=== PATIENT | female | born 2000 | race Native Hawaiian/Other Pacific Islander ===

== ENCOUNTER 2021-04-07 15:48 | Outpatient (CLI) | payer OTHER ==
[2021-04-07] MEDS ORDERED: LACTATED RINGERS 1,000 ML IV ONE (16:39)
[2021-04-07 17:40] LABS: Hemoglobin 12.2 gm/dl (10.1-14.3); Mean Corpuscular HGB Conc 34 % (30-34); Mean Corpuscular Volume 92 fl (79-97); Platelet Count 247 K/mm3 (140-440); Red Blood Count 3.92 M/mm3 (3.65-5.03)
[2021-04-07 17:57] LABS: Alanine Aminotransferase 9 units/L (7-56); Uric Acid 5.7 mg/dL (3.5-7.6)
[2021-04-07 18:31] LABS: Bilirubin,Urine NEG (Negative); Blood,Urine NEG (Negative); Color,Urine Yellow (Yellow); Mucus,Urine FEW /HPF; Protein,Urine <15 mg/dL mg/dL (Negative); Urobilinogen,Urine < 2.0 mg/dL (<2.0)
[2021-04-07 19:25] VITALS: BP 113/77
--- NOTE | 2021-04-07 20:59 | Ultrasound Report ---
ULTRASOUND OBSTETRIC LIMITED ULTRASOUND BIOPHYSICAL PROFILE INDICATION / CLINICAL INFORMATION: BPP. Clinical Gestational Age (GA): 36.5 weeks.days COMPARISON: None available. FINDINGS: BREATHING MOVEMENT = 2 GROSS BODY MOVEMENT = 2 TONE = 2 QUALITATIVE AMNIOTIC FLUID VOLUME = 2 TOTAL BIOPHYSICAL SCORE = 8/8 HEART RATE (beats per minute): 138 AMNIOTIC FLUID INDEX (cm) = 8.6 (normal = 7-24 cm) PRESENTATION: Cephalic. ADDITIONAL FINDINGS: The placenta is located in the fundus. There is no evidence of previa or abrupti on. IMPRESSION: 1. Biophysical Score = 8/8 2. Normal BUD. Signer Name: Wallace Martins MD Signed: 04/07/2021 8:55 PM Workstation Name: [id number]
== END 2021-04-07 20:50 | disposition home or self-care (01) ==
LOC: TRG 15:48 → APU 15:49 → TRG 20:50
PROVIDERS: ATTEND Obstetrics & Gynecology
DX: O13.3 Gestational [pregnancy-induced] hypertension without significant proteinuria, third trimester (principal); O62.9 Abnormality of forces of labor, unspecified; Z3A.36 36 weeks gestation of pregnancy
CPT/HCPCS: 36415; 59025; 76815; 76819; 81001; 82565; 83615; 84112; 84450; 84460; 84550; 85027; 96360; J7120

== ENCOUNTER 2021-04-19 13:29 | Inpatient (IN) | payer OTHER ==
[2021-04-19] MEDS ORDERED: LACTATED RINGERS 1,000 ML ONE (19:19)
[2021-04-19] MEDS ORDERED: METHYLERGONOVINE MALEATE 0.2 MG/ML VIAL IM PRN (19:23)
[2021-04-19] MEDS ORDERED: PROMETHAZINE 25 MG TAB PO PRN (19:23)
[2021-04-19] MEDS ORDERED: ACETAMINOPHEN 325 MG TAB PO PRN (19:23)
[2021-04-19] MEDS ORDERED: ePHEDrine SULFATE 50 MG/1 ML INJ IV PRN ×2 (19:23→19:30)
[2021-04-19] MEDS ORDERED: NalbUPHINE 10 MG/1 ML INJ IV PRN (19:23)
[2021-04-19] MEDS ORDERED: MINERAL OIL 30 ML ORAL LIQD PO PRN (19:23)
[2021-04-19] MEDS ORDERED: miSOPROStol 200 MCG TAB PR PRN (19:23)
[2021-04-19] MEDS ORDERED: OXYTOCIN 10 UNIT/1 ML INJ IM PRN (19:23)
[2021-04-19] MEDS ORDERED: CARBOPROST TROMETHAMINE 250 MCG/1 ML INJ IM PRN (19:23)
[2021-04-19] MEDS ORDERED: fentaNYL 100 MCG/2 ML INJ IV PRN (19:23)
[2021-04-19] MEDS ORDERED: TERBUTALINE 1 MG/1 ML INJ SUB-Q PRN (19:23)
[2021-04-19] MEDS ORDERED: LOPERAMIDE 2 MG CAP PO PRN (19:23)
[2021-04-19] MEDS ORDERED: ONDANSETRON 4 MG/2 ML INJ IV PRN (19:23)
[2021-04-19] MEDS ORDERED: LACTATED RINGERS 1,000 ML IV SCH (19:30)
[2021-04-19] MEDS ORDERED: NALOXONE 2 MG/2 ML INJ IV PRN (19:30)
--- NOTE | 2021-04-19 19:30 | Anesthesia Consultation ---
Anesthesia Consult and Med Hx Date of service: 04/19/21 - Airway Anesthetic Teeth Evaluation: Poor ROM Head & Neck: Adequate Mental/Hyoid Distance: Adequate Mallampati Class: Class II Intubation Access Assessment: Probably Good - Pulmonary Exam CTA: Yes - Cardiac Exam Cardiac Exam: RRR - Pre-Operative Health Status ASA Pre-Surgery Classification: ASA2 Proposed Anesthetic Plan: Epidural - Pulmonary Hx Smoking: No Hx Asthma: No Hx Respiratory Symptoms: No SOB: No COPD: No Home Oxygen Therapy: No Hx Pneumonia: No Hx Sleep Apnea: No - Cardiovascular System Hx Hypertension: No Hx Coronary Artery Disease: No Hx Heart Attack/AMI: No Hx Angina: No Hx Percutaneous Transluminal Coronary Angioplasty (PTCA): No Hx Cardia Arrhythmia: No Hx Pacemaker: No Hx Internal Defibrillator: No Hx Valvular Heart Disease: No Hx Heart Murmur: No Hx Peripheral Vascular Disease: No - Central Nervous System Hx Neuromuscular Disorder: No Hx Seizures: No CVA: No Hx Back Pain: Yes Hx Psychiatric Problems: No - Gastrointestinal Hx Ulcer: No Hx Gastroesophageal Reflux Disease: Yes - Endocrine Hx Renal Disease: No Hx End Stage Renal Disease: No Hx Cirrhosis: No Hx Liver Disease: No Hx Insulin Dependent Diabetes: No Hx Non-Insulin Dependent Diabetes: No Hx Thyroid Disease: No Hx Hypothyroidism: No Hx Hyperthyroidism: No - Hematic Hx Anemia: No Hx Sickle Cell Disease: No - Other Systems Hx Alcohol Use: No Hx Substance Use: No Hx Cancer: No Hx Obesity: Yes
--- NOTE | 2021-04-19 19:34 | History and Physical Report ---
History of Present Illness Date of examination: 04/19/21 Date of admission: 04/19/21 Chief complaint: SROM and ctx History of present illness: at 38+ weeks by LMP c/w U/S. care at [facility]. Pt c/o LOF at 12:50pm today and feeling ctx earlier today. Pt admits to movement, denies vag bleed or headache. Denies fever or chills. pt desires pain med with epidural for painful contractions. labs with B positive, neg antibody screen, rubella non-immune, VDRL neg, HepBsAg neg, HIV neg and GBS neg. Past History Past Medical History: other (Rubella non-immune, SMA carrier) Past Surgical History: no surgical history Social history: no significant social history - Obstetrical History Expected Date of Delivery: 05/01/21 Actual Gestation: 38 Week(s) 2 Day(s) : 1 Number of Living Children: 0 Medications and Allergies Allergies Allergy/AdvReac Type Severity Reaction Status Date / Time No Known Allergies Allergy Verified 04/07/21 16:16 Home Medications Medication Instructions Recorded Confirmed Last Taken Type No Known Home Medications [No 04/19/21 04/19/21 Unknown History Reported Home Medications] Active Meds: Active Medications Acetaminophen (Acetaminophen 325 Mg Tab) 650 mg PO Q4H PRN PRN Reason: Pain, Mild (1-3) Carboprost Tromethamine (Carboprost Tromethamine 250 Mcg/1 Ml Inj) 250 mcg IM ONCE PRN PRN Reason: Uterine Bleeding Ephedrine Sulfate (Ephedrine Sulfate 50 Mg/1 Ml Inj) 10 mg IV Q2M PRN PRN Reason: Hypotension Fentanyl (Fentanyl 100 Mcg/2 Ml Inj) 100 mcg IV Q2H PRN PRN Reason: Pain,Severe (7-10) LABOR PAIN Oxytocin/Sodium Chloride (Pitocin/Ns 30 Unit/500ml) 30 units in 500 mls @ 2 mls/hr IV TITR ZULEYMA; Protocol Lactated Ringer's (Lactated Ringers) 1,000 mls @ 125 mls/hr IV DIRECT ZULEYMA Oxytocin/Sodium Chloride (Pitocin/Ns 30 Unit/500ml) 30 units in 500 mls @ 40 mls/hr IV TITR [facility]; Protocol Lidocaine (Lidocaine (2%) 20 Mg/1 Ml Vial 20 Ml Mdv) 20 ml INFILTRATI ONCE ONE Stop: 04/19/21 19:24 Loperamide HCl (Loperamide 2 Mg Cap) 2 mg PO ONCE PRN PRN Reason: give with Hemabate Methylergonovine Maleate (Methylergonovine Maleate 0.2 Mg/Ml Vial) 0.2 mg IM ONCE PRN PRN Reason: Uterine Bleeding Mineral Oil (Mineral Oil 30 Ml Oral Liqd) 30 ml PO QHS PRN PRN Reason: Constipation Misoprostol (Misoprostol 200 Mcg Tab) 800 mcg AR ONCE PRN PRN Reason: Uterine Bleeding Nalbuphine HCl (Nalbuphine 10 Mg/1 Ml Inj) 10 mg IV Q2H PRN PRN Reason: Pain, Moderate (4-6) Ondansetron HCl (Ondansetron 4 Mg/2 Ml Inj) 4 mg IV Q8H PRN PRN Reason: Nausea And Vomiting Oxytocin (Oxytocin 10 Unit/1 Ml Inj) 10 unit IM ONCE PRN PRN Reason: Uterine Bleeding Promethazine HCl (Promethazine 25 Mg Tab) 25 mg PO Q6H PRN PRN Reason: Nausea And Vomiting Terbutaline Sulfate (Terbutaline 1 Mg/1 Ml Inj) 0.25 mg SUB-Q ONCE PRN PRN Reason: Hyperstimulation/Hypertonicity Review of Systems All systems: negative (LOF and ctx) - Vital Signs Vital signs: Vital Signs Pulse Pulse Ox 87 98 04/19/21 14:10 04/19/21 14:10 Temp Pulse Resp BP Pulse Ox 98.7 F 108 H 18 131/75 96 04/19/21 17:50 04/19/21 19:25 04/19/21 14:18 04/19/21 18:12 04/19/21 19:25 - Physical Exam Breasts: Positive: deferred Cardiovascular: Regular rate Lungs: Positive: Normal air movement Abdomen: Positive: soft Genitourinary (Female): Positive: normal external genitalia Uterus: Positive: enlarged (non-tender, gravid) Extremities: Positive: normal - Obstetrical FHR: category 1 Uterine Contraction Monitor Mode: External Cervical Dilatation: 5 (also 5cm by triage nurse) Cervical Effacement Percentage: 90 station: -1 Uterine Contraction Pattern: Irregular Uterine Contraction Intensity: Moderate Results Abnormal lab results 04/19/21 Range/Units Unknown Membranes Rupture Positive A (Negative) All other labs normal. Assessment and Plan Term preg in latent labor, GBS neg; rubella non-immune 1. Admit to labor and delivery and offer rubella vaccine 2. Augment labor with pitocin if cervix unchanged in 2hrs; no change noted with my repeat exam but pt uncomfortable so will delay pit until IV med given awaiting epidural 3. May have IV pain med or epidural when desired 4. Plan of care discussed and all questions encouraged and answered and pt agrees; expect
[2021-04-19 19:52] LABS: Hematocrit 36.9 % (30.3-42.9); Hemoglobin 12.3 gm/dl (10.1-14.3); Mean Corpuscular HGB Conc 33 % (30-34); Mean Corpuscular Volume 92 fl (79-97); Platelet Count 209 K/mm3 (140-440); Red Blood Count 4.03 M/mm3 (3.65-5.03); Red Cell Distribution Width 14.3 % (13.2-15.2)
[2021-04-19] MEDS ORDERED: fentaNYL-BUPIV 2 MCG/ML-0.125% 200 MCG/100 ML BAG EPIDURAL SCH (20:00)
[2021-04-19] MEDS ORDERED: LIDOCAINE (2%) 20 MG/1 ML VIAL 20 ML MDV INFILTRATI ONE (20:30)
[2021-04-19] MEDS ORDERED: OXYTOCIN DRIP 30 UNITS/500 ML BAG IV SCH ×2 (21:00)
--- NOTE | 2021-04-19 23:21 | Procedure Note ---
OB Delivery Note - Delivery Date of Delivery: 04/19/21 Surgeon: TOMASZ TURPIN Estimated blood loss: 500cc - Vaginal Delivery position: OA Intrapartum events: other(please specify) Delivery monitor: external FHT Route of delivery: Delivery placenta: spontaneous Delivery cord: nuchal cord (nuchal cord x1 avulsed while attempting to manually reduce and patient pushed.) Episiotomy: none Delivery laceration: vaginal side wall, other ((B) periurethral lacerations, (L) labia minora fracture, (B) vaginal sidewall) Delivery repair: vicryl Anesthesia: local - A at 1 minute: 2 at 5 minutes: 8 Gender: Male
[2021-04-20] MEDS ORDERED: MAGNESIUM HYDROXIDE (MOM) ORAL LIQD UDC PO PRN (01:18)
[2021-04-20] MEDS ORDERED: WITCH HAZEL/ GLYCERIN PAD TP PRN (01:18)
[2021-04-20] MEDS ORDERED: PROMETHAZINE 25 MG TAB PO PRN (01:18)
[2021-04-20] MEDS ORDERED: ONDANSETRON 4 MG/2 ML INJ IV PRN (01:18)
[2021-04-20] MEDS ORDERED: HYDROcodone/ACETAMINOPHEN 5-325 MG TAB PO PRN (01:18)
[2021-04-20] MEDS ORDERED: diphenhydrAMINE 25 MG CAP PO PRN (01:18)
[2021-04-20] MEDS ORDERED: ACETAMINOPHEN 325 MG TAB PO PRN (01:18)
[2021-04-20] MEDS ORDERED: oxyCODONE /ACETAMINOPHEN 5-325MG TAB PO PRN (01:18)
[2021-04-20] MEDS ORDERED: LANOLIN/ZINC/DIMETHICONE (LANSINOH) 7 GM TP PRN (01:18)
[2021-04-20] MEDS: IBUPROFEN 600 MG TAB PO SCH ×4 (01:59→20:33)
[2021-04-20 02:39] LABS: Hematocrit 36.3 % (30.3-42.9); Hemoglobin 11.7 gm/dl (10.1-14.3); Mean Corpuscular HGB Conc 32 % (30-34); Mean Corpuscular Volume 93 fl (79-97); Platelet Count 182 K/mm3 (140-440); Red Blood Count 3.91 M/mm3 (3.65-5.03); Red Cell Distribution Width 14.2 % (13.2-15.2)
--- NOTE | 2021-04-20 14:29 | Progress Note ---
Assessment and Plan PPD#1 with bilateral mild bilateral labia edema and leucocytosis 1. Will repeat cbc in am and give augmentin now 2. routine care All questions encouraged and answered Subjective Date of service: 04/20/21 Principal diagnosis: PPD#1 with bilat mild labial swelling Interval history: Pt is voiding without difficulty. Denies pelvic pain. Pt wants to breast feed. Vag bleed less than a period. Objective - Constitutional Vitals: Vital Signs - 12hr 04/20/21 04/20/21 04/20/21 03:33 07:58 08:25 Temperature 98.6 F 97.7 F Pulse Rate 99 H 92 H Respiratory 24 16 Rate Blood Pressure 116/73 Blood Pressure 121/65 [Left] O2 Sat by Pulse 96 96 Oximetry O2 Sat by Pulse 96 Oximetry [ Anterior Bilateral Throughout] 04/20/21 11:52 Temperature 98.2 F Pulse Rate 92 H Respiratory 20 Rate Blood Pressure 94/52 Blood Pressure [Left] O2 Sat by Pulse 95 Oximetry O2 Sat by Pulse Oximetry [ Anterior Bilateral Throughout] General appearance: Present: no acute distress - Neck Neck: normal ROM - Respiratory Respiratory effort: normal - Breasts Breasts: deferred - Cardiovascular Rhythm: regular Extremities: No edema - Gastrointestinal General gastrointestinal: Present: soft, non-tender - Genitourinary Female genitourinary: other (Fundus firm, non-tender 2cm below the umbilicus; lochia small and bilateral labial edema noted) - Neurologic Neurologic: moves all extremities - Psychiatric Psychiatric: cooperative - Labs CBC & Chem 7: 04/20/21 01:42 Labs: Abnormal lab results 04/19/21 04/19/21 04/20/21 Range/Units 06:15 Unknown 01:42 WBC 15.5 H 19.4 H (4.5-11.0) K/mm3 Membranes Rupture Positive A (Negative) Medications & Allergies - Medications Allergies/Adverse Reactions: Allergies No Known Allergies Allergy (Verified 04/07/21 16:16) Home Medications: Home Medications Medication Instructions Recorded Confirmed Last Taken Type No Known Home Medications [No 04/19/21 04/19/21 Unknown History Reported Home Medications] Active Medications: Generic Name Dose Route Start Last Admin Trade Name Freq PRN Reason Stop Dose Admin Acetaminophen 650 mg 04/20/21 01:18 Acetaminophen 325 Mg Tab PO Q4H PRN Pain MILD(1-3)/Fever >100.5/EDUARDO Hydrocodone Bitart/Acetaminophen 2 each 04/20/21 01:18 Hydrocodone/Acetaminophen 5-325 Mg Tab PO Q6H PRN Pain, Moderate (4-6) Bisacodyl 10 mg 04/20/21 01:18 Bisacodyl 10 Mg Rect Supp IN BID PRN Constipation Carboprost Tromethamine 250 mcg 04/19/21 19:23 Carboprost Tromethamine 250 Mcg/1 Ml Inj IM ONCE PRN Uterine Bleeding Diphenhydramine HCl 25 mg 04/20/21 01:18 Diphenhydramine 25 Mg Cap PO Q6H PRN Itching Ephedrine Sulfate 10 mg 04/19/21 19:30 Ephedrine Sulfate 50 Mg/1 Ml Inj IV Q2M PRN Hypotension Fentanyl 100 mcg 04/19/21 19:23 Fentanyl 100 Mcg/2 Ml Inj IV Q2H PRN Pain,Severe (7-10) LABOR PAIN Oxytocin/Sodium Chloride 30 units in 500 mls @ 2 mls/hr 04/19/21 21:00 Pitocin/Ns 30 Unit/500ml IV TITR [facility] Protocol Lactated Ringer's 1,000 mls @ 125 mls/hr 04/19/21 19:30 Lactated Ringers IV DIRECT ZULEYMA Oxytocin/Sodium Chloride 30 units in 500 mls @ 40 mls/hr 04/19/21 21:00 Pitocin/Ns 30 Unit/500ml IV TITR [facility] Protocol Fentanyl/Bupivacaine/Sodium Chlor 200 mcg in 100 mls @ 12 mls/hr 04/19/21 20:00 Fentanyl-Bupiv 2 Mcg/Ml-0.125% EPIDURAL TITR [facility] Protocol Ibuprofen 600 mg 04/20/21 02:00 04/20/21 10:09 Ibuprofen 600 Mg Tab PO 600 mg Q6H ZULEY[facility] Administration Loperamide HCl 2 mg 04/19/21 19:23 Loperamide 2 Mg Cap PO ONCE PRN give with Hemabate Magnesium Hydroxide 30 ml 04/20/21 01:18 Magnesium Hydroxide (Mom) Oral Liqd Udc PO HS PRN Constipation Methylergonovine Maleate 0.2 mg 04/19/21 19:23 Methylergonovine Maleate 0.2 Mg/Ml Vial IM ONCE PRN Uterine Bleeding Mineral Oil 30 ml 04/19/21 19:23 04/19/21 21:50 Mineral Oil 30 Ml Oral Liqd PO 30 ml QHS PRN Administration Constipation Misoprostol 800 mcg 04/19/21 19:23 Misoprostol 200 Mcg Tab IN ONCE PRN Uterine Bleeding Multi-Ingredient Ointment 1 applic 04/20/21 01:18 04/20/21 10:09 Lanolin/Zinc/Dimethicone (Lansinoh) 7 Gm TP 1 applic PRN PRN Administration Sore Nipples Nalbuphine HCl 10 mg 04/19/21 19:23 04/19/21 20:15 Nalbuphine 10 Mg/1 Ml Inj IV 10 mg Q2H PRN Administration Pain, Moderate (4-6) Naloxone HCl 0.2 mg 04/19/21 19:30 Naloxone 2 Mg/2 Ml Inj IV Q5M PRN Respiratory sedation Ondansetron HCl 4 mg 04/20/21 01:18 Ondansetron 4 Mg/2 Ml Inj IV Q8H PRN Nausea And Vomiting Oxycodone/Acetaminophen 1 tab 04/20/21 01:18 Oxycodone /Acetaminophen 5-325mg Tab PO Q6H PRN Pain, Moderate (4-6) Oxytocin 10 unit 04/19/21 19:23 Oxytocin 10 Unit/1 Ml Inj IM ONCE PRN Uterine Bleeding Promethazine HCl 25 mg 04/20/21 01:18 Promethazine 25 Mg Tab PO Q6H PRN Nausea And Vomiting Sodium Chloride 10 ml 04/20/21 02:00 Sodium Chloride 0.9% 10 Ml Flush Syringe IV PRN PRN LINE FLUSH Terbutaline Sulfate 0.25 mg 04/19/21 19:23 Terbutaline 1 Mg/1 Ml Inj SUB-Q ONCE PRN Hyperstimulation/Hypertonicity Witch Elisa/Glycerin 1 each 04/20/21 01:18 Witch Elisa/ Glycerin Pad TP PRN PRN Hemorrhoid/cleansing/soothing
[2021-04-20] MEDS: AMOXICILLIN/K CLAV 875/125MG TAB PO SCH ×2 (15:44→22:11)
[2021-04-20] MEDS ORDERED: miSOPROStol 200 MCG TAB PR ONE (18:38)
[2021-04-21] MEDS: IBUPROFEN 600 MG TAB PO SCH ×3 (04:14→17:27)
[2021-04-21 05:42] LABS: Hematocrit 33.4 % (30.3-42.9); Hemoglobin 10.9 gm/dl (10.1-14.3); Mean Corpuscular HGB Conc 33 % (30-34); Mean Corpuscular Volume 93 fl (79-97); Platelet Count 214 K/mm3 (140-440); Red Cell Distribution Width 14.6 % (13.2-15.2)
[2021-04-21 06:48] LABS: Anisocytosis 1+; Band Neutrophils # (Manual) 0.2 K/mm3; Basophils % (Manual) 0 % (0.0-1.8); Giant Platelets Rare; Hypochromasia 1+; Large Platelets Few; Macrocytosis 1+; Ovalocytes 1+; Total Cells Counted 100
[2021-04-21 06:49] LABS: Platelet Estimate Appe
[2021-04-21] MEDS: AMOXICILLIN/K CLAV 875/125MG TAB PO SCH ×2 (09:55→21:20)
[2021-04-21] MEDS: FERROUS SULFATE 325 MG TAB PO SCH ×2 (11:55→21:20)
--- NOTE | 2021-04-21 12:13 | Progress Note ---
Assessment and Plan A: day 2 S/P . Dysuria; probable UTI. Leukocytosis. Anemia. P: Continue Agumentin BID. Iron supplementation. Urinalysis, urine culture, and repeat CBC. Continue routine care. Subjective - Subjective Date of service: 04/21/21 Principal diagnosis: day 2 S/P ; leukocytosis Interval history: Patient reports dysuria. She denies flank pain or back pain or F/C. Has been receiving Augmentin; has leukocytosis and repeat CBC has been ordered. Urinalysis and urine culture have also been ordered. No other complaints. Patient reports: appetite normal, pain well controlled, flatus, ambulating normally, no dizzy ambulation, no nauseated [place]: doing well Objective - Vital Signs Latest vital signs: Vital Signs Temp Pulse Resp BP BP Pulse Ox Pulse Ox 04/21/21 08:47 98 04/21/21 08:02 97.5 F L 84 20 113/69 97 04/21/21 00:00 98.6 F 71 16 115/78 04/20/21 20:34 97 04/20/21 16:02 98.6 F 96 H 20 104/65 97 Intake and Output 04/20/21 04/21/21 04/21/21 23:59 07:59 15:59 Intake Total 240 100 Balance 240 100 Intake: Oral 240 100 Other: Total, Intake Amount 240 100 # Voids Void 1 1 - Exam Cardiovascular: Present: Regular rate, No murmurs Lungs: Present: Clear to auscultation Abdomen: Present: normal appearance, soft, normal bowel sounds. Absent: d istention, tenderness, guarding, rigidity Uterus: Present: normal, firm, fundal height below umbilicus. Absent: bogginess, tenderness Extremities: Absent: tenderness - Labs Labs: Abnormal lab results 04/21/21 Range/Units 05:11 WBC 15.6 H (4.5-11.0) K/mm3 RBC 3.60 L (3.65-5.03) M/mm3 Seg Neuts % (Manual) 72.0 H (40.0-70.0) % Seg Neutrophils # Man 11.2 H (1.8-7.7) K/mm3 Monocytes # (Manual) 0.9 H (0.0-0.8) K/mm3
[2021-04-21] MEDS ORDERED: MEASLES, MUMPS & RUBELLA 12,500 UNIT/0.5 ML VACCINE SUB-Q ONE (13:00)
[2021-04-21 13:34] LABS: Bilirubin,Urine NEG (Negative); Blood,Urine LG (Negative); Color,Urine Red (Yellow); RBC,Urine < 1.0 /HPF (0.0-6.0); Urobilinogen,Urine < 2.0 mg/dL (<2.0); WBC,Urine < 1.0 /HPF (0.0-6.0)
[2021-04-21 15:31] VITALS: BP 117/78
[2021-04-21 18:41] LABS: Basophils # (Auto) 0.1 K/mm3 (0.0-0.1); Basophils % (Auto) 0.7 % (0.0-1.8); Eosinophils # (Auto) 0.1 K/mm3 (0.0-0.4); Eosinophils % (Auto) 0.5 % (0.0-4.3); Hematocrit 35.5 % (30.3-42.9); Hemoglobin 11.7 gm/dl (10.1-14.3); Lymphocytes # (Auto) 2.8 K/mm3 (1.2-5.4); Lymphocytes % (Auto) 19.3 % (13.4-35.0); Mean Corpuscular HGB Conc 33 % (30-34); Mean Corpuscular Volume 92 fl (79-97); Monocytes # (Auto) 0.8 K/mm3 (0.0-0.8); Monocytes % (Auto) 5.6 % (0.0-7.3); Platelet Count 262 K/mm3 (140-440); Red Blood Count 3.84 M/mm3 (3.65-5.03); Red Cell Distribution Width 14.5 % (13.2-15.2)
--- NOTE | 2021-04-21 20:11 | Event Note ---
Date: 04/21/21 Patient requests discharge home this evening as baby has already been discharged. WBC trending downward. States dysuria has improved. Patient denies flank pain, back pain, F/C, N/V, leg pain, abdominal pain, foul discharge, chest pain, SOB, or any other problems. She reports small amount of lochia. Vulva not swollen now and lacerations appear to be healing well. Small amount of lochia noted on xochilt pad. Discussed with patient discharge instructions and warning signs. Advised patient she must continue taking Augmentin 875 mg po BID at home for 5 days; Rx for Augmentin 875 mg, #10, 1 po every 12 hours called to [facility] on [address]. Instructed pt. to grain picker her medication from [facility] as soon as she is discharged and take it exactly as prescribed. Advised patient to continue taking her vitamin daily at home. Advised patient to avoid intercourse, lifting, housework and to follow up at [facility] office on SaturdayApril 25. Patient voiced understanding of all instructions.
--- NOTE | 2021-04-21 20:24 | Discharge Summary ---
Providers - Providers Date of Admission: 04/19/21 19:23 Date of discharge: 04/21/21 Attending physician: DIANA MURRIETA Primary care physician: DIANA MURRIETA Hospitalization Reason for admission: active labor, rupture of membranes Delivery: Laceration: vaginal side wall, 1st degree Other procedures: none complications: other (UTI: treated with Augmentin and patient discharged home on Augmentin 875 mg po BID x 5 days) Discharge diagnosis: IUP at term delivered [place] baby: male Pertinent studies: Labs Hospital course: Stable hospital course Condition at discharge: Good Disposition: 01 HOME / SELF CARE / HOMELESS - Discharge Diagnoses (1) Term delivered Status: Acute Plan - Provider Discharge Summary Activity: routine, no sex for 6 weeks, no heavy lifting 4 weeks, no strenuous exercise Diet: routine Instructions: routine Additional instructions: Take Augmentin 875 mg by oral route every 12 hours for 5 days (your prescription has been called in to [facility] on [address] so please pick it up as soon as you leave the hospital). Continue taking your vitamin daily at home. Follow up at [facility] office on Saturday04/25/21. Call your doctor immediately for: * Fever > 100.5 * Heavy vaginal bleeding ( >1 pad per hour) * Severe persistent headache * Shortness of breath * Reddened, hot, painful area to leg or breast - Follow up plan Follow up: TOBY MACDONALD CNM [Advanced Practice Nurse] - 04/25/21
== END 2021-04-21 23:00 | disposition home or self-care (01) | DRG 775 ==
LOC: TRG 13:29 → APU 13:29 → LD 17:47 → TRG 19:23 → OB 04-20 03:00
PROVIDERS: ADMIT Obstetrics & Gynecology; ATTEND Obstetrics & Gynecology
PROC: 10E0XZZ Delivery of Products of Conception, External Approach (ICD-10-PCS; principal; 2021-04-19)
PROC: 0UQMXZZ Repair Vulva, External Approach (ICD-10-PCS; 2021-04-19)
PROC: 0HQ9XZZ Repair Perineum Skin, External Approach (ICD-10-PCS; 2021-04-19)
DX: O69.81X0 Labor and delivery complicated by cord around neck, without compression, not applicable or unspecified (principal); Z20.822 Contact with and (suspected) exposure to COVID-19; O99.62 Diseases of the digestive system complicating childbirth; O99.214 Obesity complicating childbirth; O70.0 First degree perineal laceration during delivery; O71.82 Other specified trauma to perineum and vulva; Z3A.38 38 weeks gestation of pregnancy; Z37.0 Single live birth; O90.81 Anemia of the puerperium; O86.20 Urinary tract infection following delivery, unspecified; N39.0 Urinary tract infection, site not specified; D72.829 Elevated white blood cell count, unspecified; K21.9 Gastro-esophageal reflux disease without esophagitis
CPT/HCPCS: 36415; 81001; 84112; 85007; 85025; 85027; 86592; 86850; 86900; 86901; 87086; 88307; 90707; 99211; G0378; J3490; G0463; J2300; J7120; U0003